=== PATIENT | male | born 1955 | race Caucasian/White ===

== ENCOUNTER 2024-03-11 11:39 | Emergency (ER) | payer MEDICARE, SELFPAY ==
[2024-03-11 11:41] VITALS: BP 167/84; PULSE 61; RESP 15; TEMP 35.9; O2SAT 97; BMI 27.8
--- NOTE | 2024-03-11 12:10 | EX.ED.GENINJ ---
HPI History of Present Illness Chief Complaint: Laceration Narrative Narrative: Chief complaint and HPI: Left middle finger injury. 68-year-old male with no significant past medical history presents for evaluation of injury and laceration to the left middle finger. Onset of injury was prior to arrival. Patient was using a log splitter when he accidentally cut his left middle finger as well as injured his left fourth distal finger. Not on blood thinners. Unknown up-to-date on tetanus and states that he does not want a tetanus vaccine despite given the risk and benefits. He has obvious deformity to the left middle finger with obvious fracture that is open. Denies any numbness or tingling. Endorses pain in the 2 fingers. Denies any pain in the hand or wrist. Right-handed. Review of systems: See HPI Medications: As listed on the chart Allergies: As listed on the chart PFSH: Per chart Vital signs: As listed on the chart. Reviewed. Physical exam: Gen: A&O x3, NAD Head: Normocephalic, atraumatic Eyes: No sclera icterus, conjunctiva clear ENT: Moist mucous membranes Neck: Full range of motion CV: Regular rate Resp: Nonlabored respiration Musc: Full ROM of the left wrist, hand, fingers. Radial/ulnar pulses plus 2 out of 4 bilaterally. Left third digit has an ~2 cm laceration to the dorsal DIP joint with fracture of the bone with deformity. Mild ecchymosis and swelling. Nail is not involved. Mild ecchymosis and swelling to the left fourth fingertip. No obvious deformity. Nail not injured. The rest of the fingers, hand, wrist atraumatic. Good capillary refill. Sensation intact. Neuro: Alert, oriented, grossly intact Psych: Cooperative, appropriate mood and affect PFSH PFSH Medical History no medical history Home Medications ?Medication ?Instructions ?Recorded ?Last Taken ?Type cephalexin 500 mg capsule 500 mg PO Q8H 7 days #21 caps 03/11/24 Unknown Rx ondansetron 4 mg disintegrating 4 mg PO Q8H PRN PRN Nausea #10 tabs 03/11/24 Unknown Rx tablet oxycodone-acetaminophen 5 mg-325 1 tab PO Q6H 3 days #12 tabs 03/11/24 Unknown Rx mg tablet (Percocet) Allergy/AdvReac Type Severity Reaction Status Date / Time No Known Allergies Allergy Verified 03/11/24 11:41 Surgical History no surgical history Social History Smoking Status: Never smoker EXAM Physical Exam Const Vital Signs: 03/11/24 11:41 03/11/24 13:39 Temperature 96.7 F L Temperature Source Temporal Pulse Rate 61 65 Respiratory Rate 15 18 Blood Pressure 167/84 H 133/85 H Blood Pressure Mean 111 101 Pulse Ox 97 96 Oxygen Delivery Method Room Air Room Air MDM MDM MDM Narrative Medical decision making narrative: 68-year-old male with no significant past medical history presents for evaluation of injury and laceration to the left middle finger as well as injury to the left distal fourth finger. Patient has an obvious open fracture to the left middle finger. See physical exam findings. Patient was informed of the risk and benefits to updating his tetanus vaccine. He declined. He is alert and oriented and able to make this decision therefore tetanus was ordered. IV Ancef ordered for open fracture. Patient originally declined this but later consented. Percocet ordered for pain. X-ray of the hand ordered. Differential includes open fracture, contusion. X-ray of the left hand was interpreted by myself as well as radiology. Patient has a comminuted fractures of the base of the third distal phalanx with 1 full shaft width of anterior displacement. Minimally displaced transverse fractures of the midshaft of the third distal phalanx. Soft tissue swelling and deformity of the third digit. Fourth digit without fracture or dislocation. Given this finding, plastic surgery was contacted and patient was discussed with Dr. Killian. Plan is for surgery versus amputation. Physician is currently in surgery and will evaluate the patient after. Given that it will be sometime before the patient can be evaluated wound was irrigated and cleaned with saline and cleansing scrub. It was dressed. Basic labs are ordered in case patient goes to the operating room. CBC and BMP relatively unremarkable. Plastic surgery evaluated patient and performed bedside amputation. Patient will be discharged home on pain medicine as well as 7-day course of Keflex. Follow-up in their office on Saturday. Plastic surgery did ask me to perform a bedside nerve block with bupivacaine, this was done and performed prior to discharge. Patient is stable to discharge home. Monitor for signs of infection. Follow-up with plastic surgery. He confirmed understanding the plan. Digital Block Location: Left third finger Consent: Risks, benefits, and alternatives discussed with patient and consent obtained Procedure: Patient underwent a digital block using bupivacaine without epinephrine. The volar aspect of the proximal phalanx was sterilely cleansed. I then utilized approximately 5 mL of bupivacaine without epinephrine into the proximal phalanx to induce a digital block. Patient tolerated the procedure well and had very good analgesic effect with this procedure. Impression: 1. Open comminuted fractures of the base of the third distal phalanx with one full shaft width of anterior displacement 2. Open Minimally displaced transverse fractures of the midshaft of the third distal phalanx 3. S/p bedside distal third finger amputation by plastic surgery Lab Data Labs: Laboratory Results - last 24 hr 03/11/24 13:20 WBC 8.7 RBC 5.09 Hgb 15.6 Hct 46.3 MCV 91.0 MCH 30.6 MCHC 33.7 RDW Std Deviation 45.3 H RDW Coeff of Osorio 13.5 Plt Count 254 MPV 9.1 Immature Gran % (Auto) 0.200 Neut % (Auto) 69.0 Lymph % (Auto) 16.5 L [place] % (Auto) 7.4 Eos % (Auto) 6.2 H Baso % (Auto) 0.7 Absolute Neuts (auto) 6.0 Absolute Lymphs (auto) 1.43 Nucleated RBC % 0 Sodium 140 Potassium 4.1 Chloride 107 Carbon Dioxide 26.0 Anion Gap 6 BUN 17 Creatinine 0.90 Estim Creat Clear Calc 93.03 Est GFR (MDRD) Af Amer 108 Est GFR (MDRD) Non-Af 89 BUN/Creatinine Ratio 18.8 Glucose 113 H Calcium 9.2 Radiography Diagnostic Testing: Clinical Impression(s) from Imaging Studies Hand X-Ray 03/11/24 12:31 IMPRESSION: Comminuted fracture through the base of the third distal phalanx with one full shaft width of anterior displacement. Minimally displaced transverse fracture through the midshaft of the third distal phalanx. Soft tissue swelling and deformity of the third digit. Electronically Signed: Jose Bardales MD at 12:45 EST , Discharge Plan Triage Chief Complaint: Laceration ED Provider: Hans Virgen Dx/Rx/DC Orders Clinical Impression: Open fracture of phalanx of left middle finger Instructions: ED Laceration, All Closures Prescriptions: New cephalexin 500 mg capsule 500 mg PO Q8H 7 Days Qty: 21 0RF ondansetron 4 mg tablet,disintegrating 4 mg PO Q8H PRN PRN (Reason: Nausea) Qty: 10 0RF oxycodone-acetaminophen [Percocet] 5-325 mg tablet 1 tab PO Q6H 3 Days Qty: 12 0RF Primary Care Provider: Care Physician,No Primary Referrals: Bryant Killian MD [Med Staff - Active Staff] - 3-5 Days Care Physician,No Primary [Primary Care Provider] - Activity Restrictions/Additional Instructions: Call to make an appointment with the plastic surgeon. He states you are supposed to follow-up on Saturday. Do not drive or operate heavy machinery while taking pain medicine. Take all of your antibiotics. Print Language: Mongolian Disposition Disposition: Home, Self Care
--- NOTE | 2024-03-11 12:31 | RAD_ITS ---
STUDY: X-RAY - LEFT HAND REASON FOR EXAM: Male, 68 years old. Trauma TECHNIQUE: 3 views of the left hand. COMPARISON: None. FINDINGS: Normal radiocarpal articulation. Normal distal radioulnar joint. Normal visualized carpal bones. Normal carpal articulations. There is mild degenerative arthrosis of the carpometacarpal articulation of the thumb. Normal second through fifth carpometacarpal joints. Normal metacarpi. Normal metacarpophalangeal joint of the thumb. Normal interphalangeal joint of the thumb. Normal proximal and distal phalanges of the thumb. Normal metacarpophalangeal joints of the second through fifth fingers. Normal proximal interphalangeal joints of the second through fifth fingers. There is a comminuted fracture through the base of the third distal phalanx with one full shaft width of anterior displacement. There is also a minimally displaced transverse fracture through the midshaft of the third distal phalanx. There is soft tissue swelling and deformity of the third digit. RAD/Hand Min 3 Views IMPRESSION: Comminuted fracture through the base of the third distal phalanx with one full shaft width of anterior displacement. Minimally displaced transverse fracture through the midshaft of the third distal phalanx. Soft tissue swelling and deformity of the third digit. Electronically Signed: Jose Bardales MD at 12:45 EST ,
[2024-03-11] MEDS: HYDROcodone Bitartrate/Apap 5/325 Tablet PO (12:37)
--- NOTE | 2024-03-11 12:54 | ED.RN ---
PT REFUSES IV ANTIBIOTICS
--- NOTE | 2024-03-11 13:01 | CON.PCM.SX_ITS ---
Assessment & Plan Assessment/Plan (1) Open fracture of phalanx of left middle finger: PLAN: I talked the patient extensively about the risks of revision amputation of the left long finger, including bleeding, infection, damage to surrounding structures, surgical site dehiscence and wound formation, need for wound care, need for repeat operations, failure to obtain the desired result, neuromas and nerve pain/pathologies. We discussed the degree of loss of hand function from DIP joint amputation. The benefits and alternatives of this surgery were also discussed. including attempt at salvage of the DIP joint/distal phalanx and attempt at DIP joint fusion to save length. We talked about possibility of tendon repairs/ect. in the setting of the severe fracture. All of their questions were answered, and they wanted to do a revision amputation in order to get healed quickly. Please see separate operative note for procedure. F/u in 2 days for wound check Keflex for 1 week Elevate for pain and pain meds (discussed with ED physicians) HPI Consult Data Date of Consult: 03/11/24 HPI Narrative HPI Narrative: CHINO PRINGLE, is a 68 M who presents for open fracture to the distal phalanx with an open DIP joint dorsally. 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 He declined a tetanus vaccine as he subscribes more to homeopathic medicine. 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 PFSH Medical History no medical history Home Medications ?Medication ?Instructions ?Recorded ?Last Taken ?Type cephalexin 500 mg capsule 500 mg PO Q8H 7 days #21 caps 03/11/24 Unknown Rx ondansetron 4 mg disintegrating 4 mg PO Q8H PRN PRN Nausea #10 tabs 03/11/24 Unknown Rx tablet oxycodone-acetaminophen 5 mg-325 1 tab PO Q6H 3 days #12 tabs 03/11/24 Unknown Rx mg tablet (Percocet) Allergy/AdvReac Type Severity Reaction Status Date / Time No Known Allergies Allergy Verified 03/11/24 11:41 Surgical History no surgical history Social History Smoking Status: Never smoker Physical Exam Narrative LEFT UPPER EXTREMITY Left long finger with dorsal laceration and small puncture wound/laceration volarly/crush injury Open DIP joint. Motor: Able to bend and extend all MP, PIP, and DIP joints except for the left long finger (unable to bend or extend the DIP joint). Sensory: Intact to light touch on the radial and ulnar borders. Intact sensation to the tip of the left long finger. Vascular: Finger tips are warm and well perfused with <2 second capillary refill. Long tip finger tip seems warm and well perfused. Lab / Micro Data 03/11/24 13:20 03/11/24 13:20 Imaging Radiology Impression Hand X-Ray 03/11/24 12:31 IMPRESSION: Comminuted fracture through the base of the third distal phalanx with one full shaft width of anterior displacement. Minimally displaced transverse fracture through the midshaft of the third distal phalanx. Soft tissue swelling and deformity of the third digit. Electronically Signed: Jose Bardales MD at 12:45 EST Reading Location ID and State: [address] [place] [address] , Service support , I reviewed the Xray. Severe comminuted fracture at the base of the distal phalanx of the left long finger Charges/Coding Visit Charges Office Visits / Consults: 04450 OV L5 New 60min
[2024-03-11 13:29] LABS: Absolute Lymphocyte Count 1.43 X10^3/uL (0.83-4.51); Basophil# 0.06 X10^3/uL; Basophil% 0.7 % (0-1); Eosinophil# 0.54 X10^3/uL; Eosinophils% 6.2 % (0-5); Hematocrit 46.3 % (40-54); Hemoglobin 15.6 g/dL (13.0-16.5); Lymphocyte # 1.43 X10^3/ul (0.83-4.51); Lymphocyte % 16.5 % (19-41); Mean Corp Hgb Conc 33.7 g/dL (32-36); Mean Corpuscular Hgb 30.6 pg (27.0-32.0); Mean Platelet Vol. 9.1 fl (6.2-12.0); Monocyte# 0.64 X10^3/uL; Monocyte% 7.4 % (0-10); NRBC Flagged by Analyzer 0 % (0-5); Neutrophil # 5.99 X10^3/uL (2.7-7.7); Platelet Count 254 K/mm3 (150-450); RBC Distribution Width CV 13.5 % (11.6-14.6); RBC Distribution Width SD 45.3 fl (35.1-43.9); Red Blood Count 5.09 M/mm3 (4.6-6.2); White Blood Count 8.7 K/mm3 (4.4-11.0)
[2024-03-11 13:39] VITALS: BP 133/85; PULSE 65; RESP 18; O2SAT 96
[2024-03-11 13:56] LABS: Anion Gap 6 (5-15); BUN 17 mg/dL (7-18); BUN/Creat Ratio 18.8 RATIO (10-20); Calcium,Total 9.2 mg/dL (8.5-10.1); Chloride 107 mmol/L (98-107); EST Glomerular Filtration Rate 89 mL/min (>60); Est Glom Filt Rate - Afr Amer 108 mL/min (>60); Estimated Creatinine Clearance 93.03 ml/min; Glucose 113 mg/dL (74-106); Potassium 4.1 mmol/L (3.5-5.1); Sodium Level 140 mmol/L (136-145)
[2024-03-11] MEDS: Cefazolin 1 GM/50 ML BAG IV (14:03)
[2024-03-11] MEDS: Lidocaine 1% (20 ml mdv) 20 ML Vial INFILT (16:48)
[2024-03-11] MEDS: Bupivacaine 0.25% 30 ML Vial OPERA.SITE (16:59)
--- NOTE | 2024-03-11 17:16 | PCM.OPRPT ---
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 He has a severely comminuted fracture of the base of the distal phalanx, and he is unable to bend or extend the DIP joint. I talked to him extensively about the risk benefits and alternatives to revision amputation. I talked to him extensively about options for saving length on the finger, including a washout of the open fracture with percutaneous pinning for stabilization and potential joint fusion later. He was not interested in this option and wanted definitive management to heal faster, and elected for revision amputation. Procedure details: In the emergency department, the patient was anesthetized with a digital block with the above-noted concentration, and his left upper extremity was prepped and draped in sterile fashion and a timeout was performed. A turnicot was applied at the base of the finger. A 15 blade scalpel was used to excise the bone of the distal phalanx as well as the ligamentous tissue and the nail matrix and plate, creating a volar advancement flap. A rongeur was used to remove the cartilage on the middle phalanx. Traction neurectomies were performed and 2 very small distal nerves and the flap. Hemostasis was obtained with pen Bovie electrocautery. The wound was irrigated with copious months normal saline. The volar flap was rotated and advanced over the middle phalanx and sutured into place with 3-0 nylon interrupted sutures loosely. Xeroform Joselyn and Coban were applied (Coban loosely), and care was taken to remove the turnicot at the end of the case. The patient tolerated the procedure well. Postoperative plan: Follow-up in clinic in 2 days for wound check. Elevate for pain control. Keflex for 7 days. Surgical Findings: Severely comminuted fracture at the base of the distal phalanx. No FDP attachment to the main distal phalanx bones. 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
== END 2024-03-11 17:29 | disposition home or self-care (01) ==
PROVIDERS: Emergency Provider Surgery; Referring Provider Surgery; Visit Provider Surgery
DX: S62.633B Displaced fracture of distal phalanx of left middle finger, initial encounter for open fracture (principal); X58.XXXA Exposure to other specified factors, initial encounter
CPT/HCPCS: 26951; 11750; 73130; 80048; 85025; 96365; 96366; 99285; A4216

== ENCOUNTER 2024-09-08 16:40 | Emergency (ER) | payer MEDICARE, SELFPAY ==
[2024-09-08 16:41] VITALS: BP 142/87; PULSE 95; RESP 18; TEMP 36.4; O2SAT 95; BMI 30.7
--- NOTE | 2024-09-08 17:15 | EX.ED.GENINJ ---
HPI History of Present Illness Chief Complaint: Laceration Narrative Narrative: 69-year-old male who denies significant past medical history presents with injury to his left index finger while using a hedge tremor. He states that he was using a hedge tremor that did not have a handle on it. He usually supports the body after he has done clipping in a downward motion to support it and lifted back up. He got the middle phalanx of his index finger that touched the back of the blade. He had macerated the tissue. While he is unsure of his last tetanus immunization, he thinks it may be current, and refuses 1 regardless. He has history of recent amputation of the tuft of his middle finger on his left hand performed by Dr. Killian from injury using a log splitter. He is right-hand dominant. He denies other injuries. He and his were concerned because they could not get the wound to stop bleeding, and it bled for at least an hour. [facility] Medical History History of carpal tunnel syndrome History of gastroesophageal reflux (GERD) Home Medications ?Medication ?Instructions ?Recorded ?Last Taken ?Type NK 06/12/24 Unknown History Allergy/AdvReac Type Severity Reaction Status Date / Time No Known Allergies Allergy Verified 09/08/24 16:40 Family History Mother Cancer cervical Father Hypertension Heart disease Surgical History Hx of surgical amputation of finger Social History Smoking Status: Never smoker how long ago did patient quit smoking: quit years ago alcohol intake: current substance use type: does not use additional social history: no personal hx blood clots , denies vaping, denies marijuana use, denies edibles, ROS ROS ED ROS Narrative Review of systems positive for macerated tissue/laceration to volar aspect of left index finger. Denies other injury. EXAM Physical Exam Narrative Exam Narrative: GCS 15. ABCs intact. Focused examination does show a macerated laceration that is irregular on the volar aspect on the middle phalanx of the left index finger, no active bleeding. Good capillary refill distally. Uninjured at the palm and above. Noted partial amputation of middle finger left hand. Const Vital Signs: 09/08/24 16:41 Temperature 97.5 F L Temperature Source Temporal Pulse Rate 95 Respiratory Rate 18 Blood Pressure 142/87 H Blood Pressure Mean 105 Pulse Ox 95 Oxygen Delivery Method Room Air PROC Procedures Lacerations Left index finger: Length: 0.47 in Depth: Sub Q Shape: Irregular with macerated tissue and skin avulsion Prep: Shure-Clens Laceration repair: Debrideded (Minimally), Lidocaine and Local Number of Sutures/Marla: 3 Suture Information: Ethilon, Simple and 4-0 Comment: Patient had already cleansed the area with a 5% hydrogen peroxide wash at home 2 times. His finger was soaked in Shur-Clens and saline here in the emergency department. Areas that were approximated with sutures, but there was thin skin in the middle of the laceration that could not be tacked down. 1 to 2 mm subcutaneous tissue was debrided with scissors. Surgifoam applied and dry sterile dressing. Patient tolerated procedure well. MDM MDM MDM Narrative Medical decision making narrative: No feel differential diagnosis is applicable in this case. However, he may have an open fracture of the finger as compared to simple laceration. He does have areas of skin avulsion as well. X-rays were obtained of the left index finger and interpreted by myself independently. There is no evidence of an acute fracture. On review of the radiology report, this confirms my independent interpretation, stating there is no displaced fracture, there is subcutaneous emphysema in the deep soft tissues consistent with his open wound. See procedure note for details of skin closure partially. A total of 3 interrupted sutures were placed in the very irregular 1.2 cm laceration. I feel [id number] analgesics are acceptable. He was offered something stronger for pain here in the emergency department but declined. At this point in time, Surgifoam was applied and dry sterile dressing. He should have a wound check by his hand surgeon, Dr. Killian in 3 to 5 days, and have sutures removed in 7 to 10 days. Return instructions to the emergency department were reviewed. Disposition is discharged home in stable condition. Radiography Diagnostic Testing: Clinical Impression(s) from Imaging Studies Finger X-Ray 09/08/24 17:20 IMPRESSION: 1. Laceration in the palmar soft tissues of the index finger, with subcutaneous emphysema present in the deep soft tissues adjacent to the middle phalanx. No radiopaque foreign body. 2. No displaced fracture. Reading Location: [id number] Discharge Plan Triage Chief Complaint: Laceration ED Provider: Lucien Guerrero Dx/Rx/DC Orders Clinical Impression: Finger laceration, Avulsion of skin of finger Instructions: ED Laceration, Hand: All Closures Prescriptions: No Action NK Primary Care Provider: Care Physician,No Primary Referrals: Bryant Killian MD [Med Staff - Active Staff] - 3-5 Days Care Physician,No Primary [Primary Care Provider] - Activity Restrictions/Additional Instructions: Follow-up with the hand surgeon, Dr. Killian for a wound check. Return to the emergency department with fever, drainage or pus from wound, new or worsening symptoms. Have sutures removed in 7 to 10 days. There are 3 simple interrupted sutures in your finger. Print Language: Grenadian Disposition Disposition: Home, Self Care
--- NOTE | 2024-09-08 17:20 | RAD_ITS ---
PROCEDURE: FINGER(S) MIN 2 VIEWS 09/08/2024 REASON FOR EXAM: TRAUMA TECHNIQUE: 3 view(s) of the left index finger COMPARISON: Left hand radiographs 03/11/2024 FINDINGS: No displaced fracture or traumatic malalignment. A punctate calcification adjacent to the middle phalanx of the middle finger is likely the sequela of remote injury. There is soft tissue irregularity along the palmar aspect overlying the middle phalanx of the index finger, with tiny foci of subcutaneous emphysema in the deep soft tissues adjacent to the middle phalanx. No radiopaque foreign body. Bone mineral density is subjectively normal. RAD/Finger(s) Min 2 Views IMPRESSION: 1. Laceration in the palmar soft tissues of the index finger, with subcutaneou s emphysema present in the deep soft tissues adjacent to the middle phalanx. No radiopaque foreign body. 2. No displaced fracture. Reading Location: [facility]
[2024-09-08] MEDS: Lidocaine 1% (20 ml mdv) 20 ML Vial INFILT (17:37)
== END 2024-09-08 18:10 | disposition home or self-care (01) ==
PROVIDERS: Emergency Provider Emergency Medicine; Visit Provider Emergency Medicine
DX: S61.211A Laceration without foreign body of left index finger without damage to nail, initial encounter (principal); X58.XXXA Exposure to other specified factors, initial encounter
CPT/HCPCS: 12001; 73140; 99283